=== PATIENT | male | born 1955 | race Caucasian/White ===

== ENCOUNTER 2019-03-06 14:37 | Emergency (ER) | payer OTHER ==
[~2019-03-06] VITALS: Ht 172.7 cm; Wt 78.5 kg
[2019-03-06 14:48] VITALS: BP_SYST 127
[2019-03-06 15:28] LABS: BASOPHILS % (AUTO) 0.4 % (0.0-2.0); EOSINOPHILS % (AUTO) 0.1 % (0.0-4.0); HEMATOCRIT 49.5 % (36-54); HEMOGLOBIN 16.7 g/dL (14.0-18.0); LYMPHOCYTES # (AUTO) 1.9 K/uL (1.0-5.5); LYMPHOCYTES % (AUTO) 16.2 % (20.5-51.5); MEAN CORPUSCULAR HEMOGLOBIN 32 pg (27-31); MEAN CORPUSCULAR HGB CONC 34 % (32-36); MEAN CORPUSCULAR VOLUME 94 fL (79.0-98.0); MONOCYTES # (AUTO) 0.8 K/uL (0.0-1.0); MONOCYTES % (AUTO) 6.6 % (1.7-9.3); NEUTROPHILS # (AUTO) 8.8 K/uL (1.8-7.7); NEUTROPHILS % (AUTO) 76.7 % (40.0-70.0); PLATELET COUNT (AUTO) 234 K/uL (130-430); RED BLOOD CELL COUNT(AUTO) 5.24 MIL/uL (4.2-6.2); RED CELL DISTRIBUTION WIDTH 13.9 % (9.0-15.0); WHITE BLOOD COUNT (AUTO) 11.5 K/uL (4.8-10.8)
[2019-03-06 15:30] LABS: ANION GAP 10 (5-15); CALCIUM 9.1 mg/dL (8.4-11.0); CHLORIDE 97 mmol/L (98-107); CREATININE 1.36 mg/dL (0.55-1.30); POTASSIUM 4.3 mmol/L (3.5-5.1); SODIUM SERUM 135 mmol/L (136-145); UREA NITROGEN, BLOOD 38 mg/dL (8-21)
[2019-03-06 15:33] LABS: GFR AFRICAN AMERICAN 68 mL/min (>90)
[2019-03-06 15:37] LABS: GLUCOSE 415 mg/dL (70-99)
[2019-03-06 15:39] LABS: ALANINE AMINOTRANSFERASE 19 U/L (12-78); ALBUMIN 3.5 g/dL (3.4-4.8); ASPARTATE AMINOTRANSFERASE 12 U/L (10-37); LIPASE 42 U/L (73-393); TOTAL BILIRUBIN 1.7 mg/dL (0.0-1.0)
[2019-03-06 16:45] VITALS: BP_SYST 127
== END 2019-03-06 16:45 | disposition home or self-care (01) ==
LOC: SED 14:37
DX: R10.13 Epigastric pain (principal); R03.0 Elevated blood-pressure reading, without diagnosis of hypertension; E11.9 Type 2 diabetes mellitus without complications; Z86.79 Personal history of other diseases of the circulatory system
CPT/HCPCS: 36415; 80053; 82962; 83690-TC; 84484; 85025; 99283

== ENCOUNTER 2021-12-22 12:28 | Emergency (ER) | payer MEDICARE, OTHER ==
[~2021-12-22] VITALS: Ht 167.6 cm; Wt 79.4 kg
[2021-12-22 12:38] VITALS: BP_SYST 141
--- NOTE | 2021-12-22 12:40 | NUR ---
Dr. Forrester at bedside examining pt.
[2021-12-22] MEDS ORDERED: ONDANSETRON HCL 4 MG/2 ML VIAL IVP ONE (12:45)
[2021-12-22] MEDS ORDERED: FAMOTIDINE PF 20 MG/2 ML VIAL IVP ONE (12:45)
--- NOTE | 2021-12-22 12:48 | NUR ---
Pt to bed #2 coming from home BIBA. Pt is A&Ox4. Skin intact. Pt c/o dizziness, Abdominal pain, and diarrhea since Saturday. Pt states on the he was admited at [facility] for Pneumonia. He was discharged 3 days ago and that is when his symptoms started. No chest pain and no sob. All neuro checks within normal limits. Pt connected to monitor technician. VSDorota MILLAN. Has hx of CHF, DM, and HTN. Bed in lowest position.
--- NOTE | 2021-12-22 12:52 | NUR ---
technical testing engineer at bedside.
[2021-12-22 13:02] LABS: BASOPHILS # (AUTO) 0.1 K/uL (0.0-0.2); BASOPHILS % (AUTO) 0.4 % (0.0-2.0); EOSINOPHILS % (AUTO) 0.1 % (0.0-4.0); HEMATOCRIT 40.3 % (36-54); HEMOGLOBIN 13.7 g/dL (14.0-18.0); LYMPHOCYTES # (AUTO) 1.9 K/uL (1.0-5.5); LYMPHOCYTES % (AUTO) 12.7 % (20.5-51.5); MEAN CORPUSCULAR HEMOGLOBIN 32 pg (27-31); MEAN CORPUSCULAR HGB CONC 34 % (32-36); MEAN CORPUSCULAR VOLUME 92 fL (79.0-98.0); MONOCYTES % (AUTO) 6.6 % (1.7-9.3); NEUTROPHILS # (AUTO) 12.3 K/uL (1.8-7.7); NEUTROPHILS % (AUTO) 80.2 % (40.0-70.0); PLATELET COUNT (AUTO) 413 K/uL (130-430); RED BLOOD CELL COUNT(AUTO) 4.36 MIL/uL (4.2-6.2); RED CELL DISTRIBUTION WIDTH 13.9 % (9.0-15.0); WHITE BLOOD COUNT (AUTO) 15.3 K/uL (4.8-10.8)
--- NOTE | 2021-12-22 13:06 | NUR ---
# 20 gauge angiocath placed to left forearm. Use of asceptic technique. Opsite placed over site. Blood return noted. Flushed with 10 cc of normal saline. No evidence of infiltration noted. Patient tolerated well.
--- NOTE | 2021-12-22 13:07 | NUR ---
EKG performed at BS. Physician given copy of EKG for review.
--- NOTE | 2021-12-22 13:08 | NUR ---
Chest X-Ray being done at bedside.
[2021-12-22 13:28] LABS: ANION GAP 8 (5-15); CALCIUM 8.4 mg/dL (8.4-11.0); CHLORIDE 99 mmol/L (98-107); CREATININE 1.15 mg/dL (0.55-1.30); GLUCOSE 194 mg/dL (70-99); POTASSIUM 3.9 mmol/L (3.5-5.1); SODIUM SERUM 133 mmol/L (136-145); UREA NITROGEN, BLOOD 25 mg/dL (8-21)
--- NOTE | 2021-12-22 13:32 | NUR ---
Report given to Nickie JOYA to assume care.
[2021-12-22 13:36] LABS: ALANINE AMINOTRANSFERASE 19 U/L (12-78); ALBUMIN 2.8 g/dL (3.4-4.8); ASPARTATE AMINOTRANSFERASE 14 U/L (10-37); LIPASE 20 U/L (73-393); TOTAL BILIRUBIN 0.6 mg/dL (0.0-1.0)
--- NOTE | 2021-12-22 13:40 | NUR ---
First contact made with patient. Pt resting in bed; in NAD. Alert and oriented x 3. Easily arousable to voice. VSS on monitoring and evaluation advisor. Pt awaiting further dispo.
[2021-12-22 13:41] LABS: GFR AFRICAN AMERICAN 82 mL/min (>90)
[2021-12-22] MEDS ORDERED: RANO500T2 PO (13:51)
[2021-12-22] MEDS ORDERED: ROSU20TA2 PO (13:51)
[2021-12-22] MEDS ORDERED: HYDR-3610 PO (13:51)
[2021-12-22] MEDS ORDERED: SPIR25TA PO (13:51)
[2021-12-22] MEDS ORDERED: SSREG SUBCUT (13:51)
[2021-12-22] MEDS ORDERED: NEU300 PO (13:51)
[2021-12-22] MEDS ORDERED: CARV25TA55 PO (13:51)
[2021-12-22] MEDS ORDERED: FURO-149 PO (13:51)
[2021-12-22] MEDS ORDERED: ASPI-1393 PO (13:51)
[2021-12-22] MEDS ORDERED: DABI150C PO (13:51)
--- NOTE | 2021-12-22 13:51 | NUR ---
Medication reconciliation completed with information provided by list on patient's phone. Any prior medication reconciliation on file was reviewed and corrected.
[2021-12-22] MEDS ORDERED: AZITHROMYCIN 250 MG TABLET PO ONE (14:15)
[2021-12-22] MEDS ORDERED: cefTRIAXone 1 GM in D5W 50 ML IV ONE (14:15)
[2021-12-22] MEDS ORDERED: cefTRIAXone 1 GM VIAL ONE (15:03)
[2021-12-22] MEDS ORDERED: NACL 0.9% 1,000 ML IV ONE (15:15)
--- NOTE | 2021-12-22 15:50 | NUR ---
COVID swab collected at bedside and sent to lab
--- NOTE | 2021-12-22 19:16 | NUR ---
Report given to So JOYA to assume care of patient
--- NOTE | 2021-12-22 19:27 | NUR ---
Initial assessment by MAHNAZ Rizzo Received report from MAHNAZ Fu for 66 yo male here with initial c/o dizziness. Currently pt lying supine on gurney, c/o 7/10 burning pain to L chest. Able to verbalized his needs. Tachycardia HR 105 on monitor. normal respiration in room air. Pending transfer to [facility]. Will continue to monitor
[2021-12-22] MEDS ORDERED: MORPHINE 2 MG/ML INJ. SYRINGE IVP ONE (20:15)
[2021-12-22 20:34] VITALS: BP_SYST 155
--- NOTE | 2021-12-22 22:22 | NUR ---
Pt. transfer to [facility] Report # Abundio NUNEZ: Dr. Valeria Allen Room #403-B
--- NOTE | 2021-12-22 22:28 | NUR ---
Transfer note by MAHNAZ Rizzo [facility] unit [id number] at bed side to transfer pt to [facility]. Full report and transfer paperworks and radiology cd were given to Gareth Mills- staff from [facility]. Pt is AOx4, no acute distress noted. Pt is stable to be transferred. All belongings are taken by pt.
--- NOTE | 2021-12-22 22:46 | NUR ---
Pt going to [facility] room 4036. Full report given to MAHNAZ Ryder.
== END 2021-12-22 22:46 | disposition short-term general hospital (02) ==
LOC: SED 12:28
DX: J18.9 Pneumonia, unspecified organism (principal); R42 Dizziness and giddiness; R00.0 Tachycardia, unspecified; E83.41 Hypermagnesemia; E11.65 Type 2 diabetes mellitus with hyperglycemia; Z20.822 Contact with and (suspected) exposure to COVID-19
CPT/HCPCS: 36415; 71045; 80053; 82962; 83690; 83735; 84484; 85025; 87426; 93005; 96361; 96365; 96375; 99285; J0696; J2270; J2405; J3490; J7030; J7060; Q0144

== ENCOUNTER 2022-04-26 21:30 | Emergency (ER) | payer MEDICARE ==
[~2022-04-26] VITALS: Ht 167.6 cm; Wt 81.6 kg
[~2022-04-26 21:30] MED LIST: ASPI-1393 PO; CARV25TA55 PO; DABI150C PO; FURO-149 PO; HYDR-3610 PO; NEU300 PO; RANO500T2 PO; ROSU20TA2 PO; SPIR25TA PO; SSREG SUBCUT
[2022-04-26 22:07] VITALS: BP_SYST 189
[2022-04-26] MEDS ORDERED: ONDANSETRON HCL 4 MG/2 ML VIAL IVP ONE (22:30)
--- NOTE | 2022-04-26 22:40 | NUR ---
ER at bedside examining patient.
--- NOTE | 2022-04-26 23:10 | NUR ---
Pt BIB ambulance from home with c/o abd pain associated with N&V. States he received the Covid vax on Saturday and the following day he had onset of abd pain and loose stools. Abd pain progressed today. Arrived to ED in no severe distress, breathing adequately on RA.
--- NOTE | 2022-04-26 23:30 | NUR ---
ER at bedside examining patient.
--- NOTE | 2022-04-26 23:32 | NUR ---
# 20 gauge angiocath placed to L AC. Use of asceptic technique. Opsite placed over site. Blood return noted. Flushed with 10 cc of normal saline. No evidence of infiltration noted. Patient tolerated well.
[2022-04-26] MEDS ORDERED: NACL 0.9% 1,000 ML IV ONE (23:45)
[2022-04-26] MEDS ORDERED: DIPHENHYDRAMINE INJ 50 MG/ML VIAL IVP ONE (23:45)
[2022-04-26] MEDS ORDERED: METOCLOPRAMIDE HCL 10 MG/2 ML VIAL IVP ONE (23:45)
[2022-04-26] MEDS ORDERED: DIPHENHYDRAMINE INJ 50 MG/ML VIAL ONE (23:46)
[2022-04-26] MEDS ORDERED: METOCLOPRAMIDE HCL 10 MG/2 ML VIAL ONE (23:46)
[2022-04-26 23:48] LABS: BASOPHILS # (AUTO) 0.2 K/uL (0.0-0.2); BASOPHILS % (AUTO) 1.8 % (0.0-2.0); EOSINOPHILS % (AUTO) 0.3 % (0.0-4.0); HEMATOCRIT 46.2 % (36-54); LYMPHOCYTES # (AUTO) 1.1 K/uL (1.0-5.5); LYMPHOCYTES % (AUTO) 11.9 % (20.5-51.5); MEAN CORPUSCULAR VOLUME 90 fL (79.0-98.0); MONOCYTES # (AUTO) 0.6 K/uL (0.0-1.0); MONOCYTES % (AUTO) 6.3 % (1.7-9.3); NEUTROPHILS # (AUTO) 7.2 K/uL (1.8-7.7); NEUTROPHILS % (AUTO) 79.7 % (40.0-70.0); PLATELET COUNT (AUTO) 248 K/uL (130-430); RED BLOOD CELL COUNT(AUTO) 5.12 MIL/uL (4.2-6.2); RED CELL DISTRIBUTION WIDTH 13.8 % (9.0-15.0); WHITE BLOOD COUNT (AUTO) 9.1 K/uL (4.8-10.8)
[2022-04-27 00:04] LABS: CALCIUM 10.3 mg/dL (8.4-11.0); CREATININE 1.42 mg/dL (0.55-1.30); POTASSIUM 3.9 mmol/L (3.5-5.1)
[2022-04-27 00:10] LABS: ALBUMIN 3.7 g/dL (3.4-4.8); TOTAL BILIRUBIN 1.1 mg/dL (0.0-1.0)
[2022-04-27] MEDS ORDERED: NACL 0.9% 1,000 ML IV ONE (01:00)
[2022-04-27] MEDS ORDERED: MORPHINE 4 MG INJ. 4 MG/ML VIAL IVP ONE (01:15)
--- NOTE | 2022-04-27 02:06 | NUR ---
Pt resting comfortably in bed, easy to arouse. No signs of acute distress. Breathing adequately on RA.
[2022-04-27 03:35] LABS: CALCIUM 9.1 mg/dL (8.4-11.0); CREATININE 1.44 mg/dL (0.55-1.30)
[2022-04-27] MEDS ORDERED: ONDA-8 TL (04:01)
[2022-04-27] MEDS ORDERED: ACET-2634 PO (04:01)
[2022-04-27] MEDS ORDERED: MAG HYDROX/AL HYDROX/SIMETH 30 ML, DICYCLOMINE HCL 20 MG, LIDOCAINE VISCOUS 2% 15ML (PO... PO ONE ×3 (04:30)
[2022-04-27] MEDS ORDERED: DICYCLOMINE HCL 10 MG/5 ML SOLUTION ONE (04:39)
[2022-04-27] MEDS ORDERED: MAG-AL HYDROX/SIMETH 30 ML UDC ONE (04:39)
[2022-04-27] MEDS ORDERED: LIDOCAINE VISCOUS 2%, 15 ML UDC ONE (04:39)
[2022-04-27 04:45] VITALS: BP_SYST 153
--- NOTE | 2022-04-27 04:45 | NUR ---
Patient given written and verbal discharge instructions and verbalizes understanding. ER MD Valdes discussed with patient the results and treatment provided. Patient in stable condition. ID arm band removed. IV catheter removed intact and dressing applied, no active bleeding. Rx of Acetaminophen and Zofran sent to pharmacy of choice. Patient educated on pain management and to follow up with PMD. Pain Scale 1/10. Opportunity for questions provided and answered. Medication side effect fact sheet provided.
[2022-04-27 08:40] LABS: HEMOGLOBIN 15.7 g/dL (14.0-18.0); MEAN CORPUSCULAR HEMOGLOBIN 31 pg (27-31); MEAN CORPUSCULAR HGB CONC 33 % (32-36)
== END 2022-04-27 04:45 | disposition home or self-care (01) ==
LOC: SED 21:30
DX: E11.65 Type 2 diabetes mellitus with hyperglycemia (principal); R73.9 Hyperglycemia, unspecified; R11.2 Nausea with vomiting, unspecified; R10.9 Unspecified abdominal pain; R05.9 Cough, unspecified; Z79.4 Long term (current) use of insulin; Z79.899 Other long term (current) drug therapy
CPT/HCPCS: 99285; 96374; 96375 ×2; 80053; 82962; 83690; 85025; 36415; 93005; 82803; 96361; 80048; J1200; J2765; J2405; J2001; J2270; J7030